=== PATIENT | male | born 1995 | race Caucasian/White ===

== ENCOUNTER 2018-12-16 01:01 | Emergency (ER) | payer OTHER ==
[~2018-12-16] VITALS: Ht 165.1 cm; Wt 71.4 kg
[2018-12-16 02:10] VITALS: BP 128/74
[2018-12-16] MEDS ORDERED: KETOROLAC TROMETHAMINE 30 MG/ML VIAL IM ONE (02:15)
[2018-12-16] MEDS ORDERED: AZITHROMYCIN 250 MG TABLET PO ONE (02:15)
== END 2018-12-16 02:15 | disposition home or self-care (01) ==
LOC: EMS 01:01
DX: H66.92 Otitis media, unspecified, left ear (principal); J02.9 Acute pharyngitis, unspecified; Z88.0 Allergy status to penicillin
CPT/HCPCS: 99283; J1885